=== PATIENT | female | born 1975 | race American Indian/Alaskan Native ===

== ENCOUNTER 2019-05-02 06:43 | Emergency (ER) | payer OTHER ==
[2019-05-02 08:13] LABS: Basophils # (Auto) 0.1 K/mm3 (0.0-0.1); Basophils % (Auto) 1.1 % (0.0-1.8); Eosinophils # (Auto) 0.1 K/mm3 (0.0-0.4); Eosinophils % (Auto) 2.4 % (0.0-4.3); Lymphocytes # (Auto) 2.1 K/mm3 (1.2-5.4); Lymphocytes % (Auto) 33.6 % (13.4-35.0); Mean Corpuscular HGB Conc 28 % (30-34); Mean Corpuscular Volume 70 fl (79-97); Monocytes # (Auto) 0.4 K/mm3 (0.0-0.8); Monocytes % (Auto) 6.6 % (0.0-7.3); Platelet Count 292 K/mm3 (140-440); Red Blood Count 4.12 M/mm3 (3.65-5.03)
[2019-05-02 08:14] LABS: Red Cell Distribution Width 23.3 % (13.2-15.2)
[2019-05-02 08:19] LABS: Hematocrit 28.8 % (30.3-42.9); Hemoglobin 8.2 gm/dl (10.1-14.3)
[2019-05-02 08:36] LABS: Alanine Aminotransferase 6 units/L (7-56); Albumin 4.5 g/dL (3.9-5); BUN/Creatinine Ratio 9; Blood Urea Nitrogen 8 mg/dL (7-17); Calcium 9.6 mg/dL (8.4-10.2); Hemolysis Index 2
[2019-05-02] MEDS ORDERED: NACL 0.9% 1000 ML 1,000 ML IV ONE (09:10)
--- NOTE | 2019-05-02 09:19 | Emergency Department Report ---
ED Syncope HPI - General Chief Complaint: Syncope Stated Complaint: DIZZINESS/FEELING FAINT Time Seen by Provider: 05/02/19 08:30 Source: patient Exam Limitations: no limitations - History of Present Illness Initial Comments: Mrs. gomez is a 43-year-old female with history of anemia who presents with syncope. She fainted at work while working on computer. She had preceding l ightheadedness. She feels dehydrated. She also has nausea. She has left lower abdominal pain constant which has been sharp for the last 1-2 weeks. She started new job. 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 Timing/Prior Episodes: no prior history Precipitating Factors: Positive: lightheadedness Context: sitting, standing Loss of Consciousness: brief (seconds) Current Symptoms: lightheadedness - Related Data Allergies/Adverse Reactions: Allergies No Known Allergies Allergy (Unverified 08/30/17 10:26) Home Medications: Ambulatory Orders Ferrous Sulfate [Feosol] 325 mg PO BID #40 tablet 08/30/17 ED Review of Systems ROS: Stated complaint: DIZZINESS/FEELING FAINT Other details as noted in HPI Comment: All other systems reviewed and negative Constitutional: malaise Gastrointestinal: abdominal pain ED Past Medical Hx - Past Medical History Previous Medical History?: No - Surgical History Past Surgical History?: No - Social History Smoking Status: Never Smoker Substance Use Type: None - Medications Home Medications: Home Medications Medication Instructions Recorded Confirmed Last Taken Type Ferrous Sulfate [Feosol] 325 mg PO BID #40 tablet 08/30/17 Unknown Rx ED Physical Exam - General Limitations: No Limitations General appearance: alert, in no apparent distress - Head Head exam: Present: atraumatic, normocephalic - Eye Eye exam: Present: normal appearance - ENT ENT exam: Present: mucous membranes moist - Neck Neck exam: Present: normal inspection, full ROM - Respiratory Respiratory exam: Present: normal lung sounds bilaterally. Absent: respiratory distress, wheezes, rales, rhonchi - Cardiovascular Cardiovascular Exam: Present: regular rate, normal rhythm, normal heart sounds. Absent: systolic murmur, diastolic murmur, rubs, gallop - GI/Abdominal GI/Abdominal exam: Present: soft, normal bowel sounds. Absent: distended, tenderness, guarding, rebound - Extremities Exam Extremities exam: Present: normal inspection - Back Exam Back exam: Present: normal inspection - Neurological Exam Neurological exam: Present: alert, oriented X3 - Psychiatric Psychiatric exam: Present: normal affect, normal mood - Skin Skin exam: Present: warm, dry, intact, normal color. Absent: rash ED Course Vital Signs 05/02/19 05/02/19 05/02/19 06:48 06:50 09:27 Temperature 98.0 F Pulse Rate 68 61 Respiratory 18 11 L Rate Blood Pressure 111/79 121/42 O2 Sat by Pulse 100 100 Oximetry 05/02/19 09:28 Temperature Pulse Rate Respiratory 11 L Rate Blood Pressure O2 Sat by Pulse 100 Oximetry ED Medical Decision Making - Lab Data Result diagrams: 05/02/19 07:30 05/02/19 07:30 - EKG Data EKG shows normal: sinus rhythm, axis, intervals, QRS complexes, ST-T waves Rate: normal - Medical Decision Making Mrs. gomez has history of anemia. She presents with lightheadedness syncope and left lower quadrant abdominal pain. PERC negative for PE. I do not suspect arrhythmia as a cause of syncope. Light headedness attributed to fatigue heat exhaustion. With syncope. Reassurance. Discharged home. Critical care attestation.: If time is entered above; I have spent that time in minutes in the direct care of this critically ill patient, excluding procedure time. ED Disposition Clinical Impression: Syncope, Dehydration, Anemia Disposition: DC-01 TO HOME OR SELFCARE Is pt being admited?: No Does the pt Need Aspirin: No Condition: Stable Instructions: Syncope (ED), Anemia (ED) Referrals: SALVADOR BELLAMY MD [Staff Physician] - 3-5 Days [facility] [Outside] - 3-5 Days Forms: Work/School Release Form(ED)
[2019-05-02 09:51] LABS: Bacteria,Urine 2+ /HPF (Negative); Bilirubin,Urine NEG (Negative); Blood,Urine NEG (Negative); Color,Urine Yellow (Yellow); Mucus,Urine 3+ /HPF; Urobilinogen,Urine < 2.0 mg/dL (<2.0)
[2019-05-02 11:22] VITALS: BP 111/76
== END 2019-05-02 11:31 | disposition home or self-care (01) ==
LOC: ED 06:43
DX: E86.0 Dehydration (principal); D64.9 Anemia, unspecified; R55 Syncope and collapse
CPT/HCPCS: 36415; 80053; 81001; 83690; 85025; 93005; 93010; 96360; 99283; J7030